=== PATIENT | female | born 1965 | race Caucasian/White ===

== ENCOUNTER 2022-10-08 11:21 | Outpatient (CLI) | payer BC, SELFPAY ==
--- NOTE | 2022-10-08 11:30 | CRLHL7_ITS ---
For Patients: As a result of the Century Cures Act, medical imaging exams and procedure reports are released immediately into your electronic medical record. You may view this report before your referring provider. If you have questions, please contact your health care provider. BILATERAL SCREENING MAMMOGRAM WITH COMPUTER-AIDED DETECTION AND TOMOSYNTHESIS TECHNIQUE: CC and MLO views were obtained. These mammographic images have been obtained using full-field digital technique. These mammographic images were interpreted with the benefit of computer-aided detection. Breast Tomosynthesis was used in this interpretation. COMPARISON FILM: 04/20/21, 02/18/20, 08/06/18. FINDINGS: The breasts are heterogeneously dense, which may obscure small masses IMPRESSION: There is no radiographic evidence for malignancy. ASSESSMENT: BI-RADS Category 1: Negative RECOMMENDATION: Routine screening mammogram in 1 year. A lay language report of this examination will be provided to the patient. Bryon Smith M.D. Diagnostic Radiologist [email or web address] Transcribed: 12:54 p.justin stern/Dictated by: Bryon Smith MD @ 10/09/2022 10:38:00 AM (Electronically Signed)
== END 2022-10-08 11:22 | disposition home or self-care (01) ==
LOC: MAMMO 11:24
PROVIDERS: PCP Family Medicine; Visit Provider Physician Assistant
DX: Z12.31 Encounter for screening mammogram for malignant neoplasm of breast (principal); R92.2 Inconclusive mammogram
CPT/HCPCS: 77063; 77067

== ENCOUNTER 2023-10-08 14:57 | Outpatient (CLI) | payer BC, SELFPAY | END 2023-10-08 14:58 | disposition home or self-care (01) | PROVIDERS: PCP Family Medicine; Visit Provider Physician Assistant | DX: E55.9 Vitamin D deficiency, unspecified (principal); R53.83 Other fatigue; Z13.29 Encounter for screening for other suspected endocrine disorder; Z13.0 Encounter for screening for diseases of the blood and blood-forming organs and certain disorders involving the immune mechanism | CPT/HCPCS: 82306; 82728; 84443 ==

== ENCOUNTER 2024-11-24 10:30 | Outpatient (CLI) | payer BC, SELFPAY ==
--- NOTE | 2024-11-24 10:45 | CRLHL7_ITS ---
For Patients: As a result of the Cures Act, medical imaging exams and procedure reports are released immediately into your electronic medical record. You may view this report before your referring provider. If you have questions, please contact your health care provider. BILATERAL DIAGNOSTIC DIGITAL MAMMOGRAM WITH COMPUTER-AIDED DETECTION AND TOMOSYNTHESIS CLINICAL HISTORY: LEFT breast pain. COMPARISON: 10/08/2022, 04/10/2021, 08/06/2018 TECHNIQUE: Digital BILATERAL mammogram in 4 projections with computer-aided detection. Tomosynthesis was used in this interpretation. BREAST COMPOSITION: The breasts are heterogeneously dense, which may obscure small masses. FINDINGS: 3D CC/MLO bilateral mammogram images submitted. No suspicious masses or architectural distortion. No suspicious calcifications. No adenopathy. IMPRESSION: No suspicious findings. No evidence of malignancy. RECOMMENDATIONS: Routine screening mammography. A lay language report of this examination will be provided to the patient. BI-RADS Category 1. Negative. Dictated by Bryon Smith MD @ 11/24/2024 11:23:42 AM CRL:chelsea RD/Dictated by: Bryon Smith MD @ 11/24/2024 11:23:00 AM (Electronically Signed)
--- OUTSIDE RECORDS SUMMARY | 2024-11-25 00:16 | XMS_ITS | Clinical Summary ---
Author Organization [facility] Address [address] [place] [address] Care Team Providers Care Promotions Director Name Role Phone Geraldine Barajas MD Primary Care Provide r Allergies Active Allergy Reactions Criticality Noted Date Comments Adhesive Rash 07/16/2022 Latex Rash 2021 Medications Blood Pressure Test Kit-Large (QUICK RESPONSE BP MONITOR) kitIndications: HTN (hypertension) As directed. Automatic arm cuff, diagnosis 401.0 hypertension 1 Kit 0 5 Active Vitamin A Palmitate 15,000 unit tab Take 1 Tablet by mouth once daily. Active Magnesium Gluconate 27.5 mg magne- sium (500 mg) tab Take 1 Tablet by mouth once daily. 1 Active hyoscyamine sublingual (LEVSIN SL) 0.125 mg subl TAKE 1 TABLET UNDER THE TONGUE EVERY 4 HOURS NEEDED 2 Active FLUoxetine (PROZAC) 10 mg capsuleIndicati ons:Generalized anxiety disorder,Season al depression Take 1 Capsule (10 mg) by mouth once daily in the morning. 100 Capsule 3 5 Active cholecalciferol 50,000 unit capsuleIndicati ons:Hypovitamin osis D Take 1 Capsule (50,000 units) by mouth once weekly for 8 doses. 4 Capsule 1 5 01/09/20 25 Active cholecalciferol (Vitamin D) 1,000 unit capsuleIndicati ons:Hypovitamin osis D Take 1 Capsule (1,000 units) by mouth once daily. 90 Capsule 3 5 Active Active Problems Problem Noted Date Diagnosed Date Restless leg syndrome 08/02/2022 Lactose intolerance 08/08/2021 Small intestinal bacterial overgrowth (SIBO) 01/2022 Overview (08/08/2021): Fructose malabsorption [place] [facility] [place] 07/2021 Diverticulosis 06/27/2021 Overview (06/27/2021): Colonoscopy Jun 2021 - follow up in 10 years Generalized anxiety disorder 04/30/2019 Anxiety state 03/25/2019 Insomnia, idiopathic 03/25/2019 Retinitis pigmentosa 06/30/2014 Fibromyalgia 06/30/2014 HTN (hypertension) 06/30/2014 Effects of chilblains 11/12/2007 Encounters Date Type Department Care Team Description 11/18/2024 1:05 PM CDT Office Visit [facility] [address] [place] [address] Marti Sanchez MD Sleep Problem (Sleep has been poor for 4 weeks ); Derm Problem (Fingers nails are growing down or curling) 11/18/2024 Travel from Last 3 Months Immunizations Immunization Administration Dates Next Due AMB Influenza, IIV4 PF (=>6 mos Flulaval,Fluzone Fluarix)(Flu Clinic Only) 05/01/2016 Hepatitis A (Adult) 05/29/2009 Influenza A (H1N1), Inactivated 05/29/2009 Influenza A (H1N1), Inactiva gui (Age >=3 Years) 05/29/2009 Influenza Virus, Unspecified 04/04/2017, 05/01/2016,03/17/2015,2013 Influenza, IIV3 (Age 6-35 mos) 03/28/2014,2008 Influenza, IIV3 (Age >=3 years) 05/29/2009 Influenza, IIV4 04/17/2022, 9,05/04/2018,2016,05/01/2016,03/17/2015 Influenza,CCIIV4 PRESERV FREE 04/08/2023 Td (Age >=7 Years) 11/30/2002 Td, Preservative Free (age > = 7 Years) 09/25/2018 Tdap 07/09/2024,05/29/2009 Tdap, Unspecified 05/29/2009 Zoster (Shingrix-RZV, recombinant) 12/11/2021, Family History Medical History Relation Name Comments GI Disease Brother 3 colitis Heart Disease Father Hypertension Father Stroke Maternal Grandfather Stroke Maternal Grandmother GI Disease Mother colitis Heart Disease Mother SVT Hypertension Mother Other Mother osteoporosis Stroke Paternal Grandfather Stroke Paternal Grandmother Relation Name Status Comments Brother 1 Alive Brother 2 Alive Brother 3 Father Maternal Grandfather Maternal Grandmother Mother Alive Paternal Grandfather Paternal Grandmother Social History Tobacco Use Types Packs/Day Years Used Date Smoking Tobacco: Never Smokeless Tobacco: Never Tobacco Cessation:Counseling Given: Yes Alcohol Use Standard Drinks/Week Comments Yes 0 (1 standard drink = 0.6 oz pur e alcohol) occaisonal PHQ-2 Answer Date Recorded PHQ-2 TOTAL SCORE 1 06/16/2024 Social Connections Answer Date Recorded Do you often feel lonely or isolated from those around you? 0 11/18/2024 Financial Resource Strain Answer Date R ecorded Difficulty of Paying Living Expenses 3 11/18/2024 Difficulty of Paying Living Expenses Not on file 11/18/2024 Food Insecurity Answer Date Recorded Do you worry your food will run out before you are able to buy more? 1 11/18/2024 Transportation Needs Answer Date Record ed Does lack of transportation keep you from medica l appointments? 1 11/18/2024 Does lack of transportation keep you from work, meetings or getting things that you need? 1 11/18/2024 Housing Stability Answer Date Recorded What is your housing situation today? 1 11/18/2024 Utilities Answer Date Recorded Do you have trouble paying f or utilities (for example, heat, electricity, water, phone)? 1 11/18/2024 Comments No Sex and Gender Information Value Date Recorded Sex Assigned at Not on file Legal Sex Female 5:41 AM HAND TOOL LAPPER Gender Identity Not on file Sexual Orientation Not on file Obstetrics History Para Term AB IAB SAB Ectopic Multiple Livin g Live Births 3 3 3 3 3 Date Outcome GA Total Labor Labor/2nd/3rd Weight Sex Type Anes PTL Lizz A1 A5 Name Clin 1994 Term 40w 0d 3.91 kg (8 lb 10 oz) M Vag Living 1996 Term 40w 0d 3.97 kg (8 lb 12 oz) F Vag Living 1999 Term 40w 0d 4.05 kg (8 lb 15 oz) M Vag Living Last Filed Vital Signs Vital Sign Reading Time Taken Comments Blood Pressure 116/78 11/18/2024 1:06 PM CDT Pulse 62 11/18/2024 1:06 PM CDT Temperature 36.7 C (98 F) 07/23/2019 12:12 PM HAND TOOL LAPPER Respiratory Rate - - Oxygen Saturation 99% 11/18/2024 1:06 PM CDT Inhaled Oxygen Concentration - - Weight 55.5 kg (122 lb 6.4 oz) 11/18/2024 1:06 P M CDT Height 157.5 cm (5' 2) 08/02/2022 7:47 AM HAND TOOL LAPPER Body Mass Index 22.39 08/02/2022 7:47 AM HAND TOOL LAPPER Plan of Treatment Health Maintenance Due Date Last Done Comments HIV for age 15-65 1982 Hepatitis C screening for ag e 18-79 1985 Hepatitis B series for 19+ ( 1 of 3 - 19+ 3-dose series) 1986 Pneumococcal series for age 50+ (1 of 1 - PCV) 2017 BMI (ht and wt on same day) for age 18+ 08/03/2023 08/02/2022, 07/23/2019, 07/14/2019, Additional history exists Mammogram for age 45-75 10/09/2023 10/09/19 23, 09/25/2016, 11/17/2007, Additional history exists Influenza Vaccine (Season Ended) 2025 04/08/2023, 04/17/2022, 03/25/2019, Additional history exists Depression screening for age 12+ 06/16/2025 06/16/2024, 07/29/2023, 08/02/2022, Additional history exists Pap test for age 21-65 07/02/2025 3, 07/02/2022, 11/29/2019, Additional history exists Lipids for age 45-75 04/23/2026 04/23/2021 Colonoscopy through age 75 06/27/2031 06/27/2021 Tetanus booster 07/09/2034 07/09/2024, 09/01, 05/29/2009, Additional history exists Zoster (shingles) series for age 50+ Completed 12/11/2021, 08/14/2021 COVID-19 vaccine series Completed 02/01/20, 04/08/2023, 04/17/2022, Additional history exists Tdap Completed 07/09/2024, 05/03, 05/29/2009 Procedures Procedure Name Priority Date/Time Associated Diagnosis Comments FERRITIN Add On 11/18/2024 2:05 PM CDT Paresthesia IRON PLUS IRON BINDING CAP Routine 11/18/2024 2:05 PM CDT Paresthesia HEMOGLOBIN Routine 11/18/2024 2:05 PM CDT Paresthesia VITAMIN B12 Routine 11/18/2024 2:05 PM CDT Paresthesia TSH WITH REFLEX Routine 11/18/2024 2:05 PM CDT Paresthesia COMP METABOLIC PANEL Routine 11/18/2024 2:05 PM CDT Paresthesia VITAMIN D 25 (DEFICIENCY) Routine 11/18/2024 2:05 PM CDT Paresthesia SCAN-MAMMOGRAPHY REPORT 10/08/2022 12:00 AM CDT HPV HIGH RISK Routine 07/02/2022 12:00 PM HAND TOOL LAPPER SCAN-COLONOSCOPY 06/27/2021 3:00 PM HAND TOOL LAPPER LIPID PANEL W REFLEX MEASURED LDL Routine 04/23/2021 1:27 PM HAND TOOL LAPPER Lipid screening from Last 3 Months or Most Recently Relevant to Health Maintenance Results * TSH WITH REFLEX (11/18/2024 2:05 PM CDT) TSH W/REFLEX TO FT4 1.68 0.40 - 4.50 mIU/L [facility] Blood BLOOD SPECIMEN / Unknown 11/18/2024 2:05 PM CDT 11/18/2024 2:06 PM CDT us Marti Sanchez MD CHEMISTRY Final Resul t Performing Organization Address [facility] Co de Phone Number [phone] [facility] [address] [place] [address], [place] [phone] [facility] [address] [place] [phone] * (ABNORMAL) VITAMIN D 25 (DEFICIENCY) (11/18/2024 2:05 PM CDT) VITAMIN D,25-OH,TOTAL,IA 12(L) 30 - 100 ng/mL [facility] Comment: Vitamin D Status 25-OH Vitamin D: Deficiency: <20 ng/mL Insufficiency: 20 - 29 ng/mL Optimal: > or = 30 ng/mL For 25-OH Vitamin D testing on patients on D2-supplementation and patients for whom quantitation of D2 and D3 fractions is required, the QuestAssure[facility](TM) 25-OH VIT D, (D2,D3), LC/MS/MS is recommended: order code 46101 (patients >2yrs). See Note 1 Note 1 For additional information, please refer to http://[email or web address]/faq/VDR507 (This link is being provided for informational/ educational purposes only.) Blood BLOOD SPECIMEN / Unknown 11/18/2024 2:05 PM CDT 11/18/2024 2:06 PM CDT us Marti Sanchez MD SEND OUTS Final Resul t Performing Organization Address City/[facility]/ZIP Co de Phone Number [phone] [facility] [address] [place] [address], [place] [phone] [facility] [address] [facility] [place] [address] * IRON PLUS IRON BINDING CAP (11/18/2024 2:05 PM CDT) Pathologist [facility] IRON, TOTAL 90 45 - 160 mcg/dL [facility] IRON BINDING CAPACITY 314 250 - 450 mcg/dL (calc) [facility] % SATURATION 29 16 - 45 % (calc) [facility] Blood BLOOD SPECIMEN / Unknown 11/18/2024 2:05 PM CDT 11/18/2024 2:06 PM CDT Marti Sanchez MD CHEMISTRY Final Resul t [employer] [facility] [address] [facility] [place] [address], [facility] [address] [facility] [place] [address] * HEMOGLOBIN (11/18/2024 2:05 PM CDT) [facility] HEMOGLOBIN 13.8 11.7 - 15.5 g/dL [employer] [facility] Blood BLOOD SPECIMEN / Unknown 11/18/2024 2:05 PM CDT 11/18/2024 2:06 PM CDT Marti Sanchez MD HEMATOLOGY Final Resul t [employer] [facility] [address] [facility] [place] [address], [place] [phone] [facility] [address] [facility] [place] [address] * FERRITIN (11/18/2024 2:05 PM CDT) Pathologist [facility] FERRITIN 53 16 - 232 ng/mL [facility] Blood BLOOD SPECIMEN / Unknown 11/18/2024 2:05 PM CDT 11/22/2024 4:42 PM CDT Marti Sanchez MD CHEMISTRY Final Resul t Performing Organization Address [facility] de Phone Number [phone] [address] [address], [place] [phone] [facility] [address] [place] [phone] * VITAMIN B12 (11/18/2024 2:05 PM CDT) VITAMIN B12 332 200 - 1,100 pg/mL [employer] Comment: Please Note: Although the reference range for vitamin B12 is 200-1100 pg/mL, it has been reported that between 5 and 10% of patients with values between 200 and 400 pg/mL may experience neuropsychiatric and hematologic abnormalities due to occult B12 deficiency; less than 1% of patients with values above 400 pg/mL will have symptoms. Blood BLOOD SPECIMEN / Unknown 11/18/2024 2:05 PM CDT 11/18/2024 2:06 PM CDT Marti Sanchez MD CHEMISTRY Final Resul t Performing Organization Address [facility] de Phone Number [phone] [address] [address], [place] [phone] [address] * (ABNORMAL) COMP METABOLIC PANEL (11/18/2024 2:05 PM CDT) Pathologist [facility] GLUCOSE 77 65 - 99 mg/dL [facility] Comment: Fasting reference interval UREA NITROGEN (BUN) 13 7 - 25 mg/dL [facility] CREATININE 1.06(H) 0.50 - 1.03 mg/dL [facility] EGFR 61 > OR = 60 mL/min/1.7 3m2 [facility] BUN/CREATININE RATIO 12 6 - 22 (calc) [facility] SODIUM 142 135 - 146 mmol/L [facility] POTASSIUM 3.9 3.5 - 5.3 mmol/L [facility] CHLORIDE 103 98 - 110 mmol/L [facility] CARBON DIOXIDE 31 20 - 32 mmol/L [facility] CALCIUM 9.6 8.6 - 10.4 mg/dL [facility] PROTEIN, TOTAL 6.6 6.1 - 8.1 g/dL [facility] ALBUMIN 4.5 3.6 - 5.1 g/dL [facility] GLOBULIN 2.1 1.9 - 3.7 g/dL (calc) [facility] ALBUMIN/GLOBULIN RATIO 2.1 1.0 - 2.5 (calc) [facility] BILIRUBIN, TOTAL 0.5 0.2 - 1.2 mg/dL [facility] ALKALINE PHOSPHATASE 64 37 - 153 U/L [facility] AST 16 10 - 35 U/L [facility] ALT 8 6 - 29 U/L [facility] Blood BLOOD SPECIMEN / Unknown 11/18/2024 2:05 PM CDT 11/18/2024 2:06 PM CDT us Marti Sanchez MD CHEMISTRY Final Resul t [employer] [facility] [address] [place] [address], [place] [phone] [facility] [address] [place] [address] * SCAN-MAMMOGRAPHY REPORT (10/08/2022 12:00 AM CDT) Anatomical Region Laterality Modality Other us Scanner OTHER Final Result * HPV HIGH RISK (07/02/2022 12:00 PM HAND TOOL LAPPER) TYPE 16 Negative Negative 07/06/2022 9:27 AM HAND TOOL LAPPER [facility] TYPE 18 Negative Negative 07/06/2022 9:27 AM HAND TOOL LAPPER [facility] OTHER HIGH RISK TYPES Negative Negative 07/06/2022 9:27 AM HAND TOOL LAPPER [facility] Other (Cervical) 07/02/2022 12:00 PM HAND TOOL LAPPER 07/04/2022 12:28 PM HAND TOOL LAPPER Narrative [facility] - 07/06/2022 9:27 AM HAND TOOL LAPPER HPV types 16, 18, 31, 33, 35, 39, 45, 51, 52, 56, 58, 59, 66 and 68 DNA were undetectable or below the pre-set threshold. Methodology: Shabnam Tadeo 4800 HPV Test august Luigi MORALES MICROBIOLOGY Final Resu lt [facility] [address] [place] [address], [place] * SCAN-COLONOSCOPY (06/27/2021 3:00 PM HAND TOOL LAPPER) Narrative Procedure Note Fatuma Winchester MD - 06/27/2021 2:17 PM CST [facility] [address] [facility], [address], [place] [address] Patient Name: Denise Ray Gender: Female Exam Date: 06/27/2021 Visit Number: [id number] Age: 56 Years 2 Months Date of : 1965 Attending MD: Fatuma Winchester MD Medical Record#: [id number] ----- Procedure: Colonoscopy Indications: Constipation Referring MD: Referral Self Primary MD: Anat Stout MD Medications: Admitting Medications: 0.9% Normal Saline at TKO Intra Procedure Medications: Patient received monitored anesthesia care. Complications: No immediate complications Procedure: An examination of the heart and lungs was performed and found to be withinacceptable limits. The patient was therefore deemed a reasonablecandidate for endoscopy and monitored anesthesia care. The risks and benefits of the procedure were explained to the patient.After obtaining informed consent, the patient received monitoredanesthesia care and I passed the scope without difficulty via the rectum to the ileum. The appendiceal orificeand ic valve were identified. The scope was retroflexed during theexamination The quality of the prep was good (Miralax/Gatorade DoublePrep). This was a complete examination throughout the entire colon. Findings: Normal finding. Location - ileum. Normal finding. Location - entire colon. Diverticulosis. Location: - descending colon - sigmoid. Quantity:few. No inflammation present. Impression: Constipation, unspecified constipation type Diverticulosis of colon without diverticulitis Plan Repeat colonoscopy in 10 years. If you have signs or symptoms of lower GI illness or a new diagnosis ofcolon cancer in an immediate family member, you should contact your GIprovider or your primary provider to discuss whether your next examshould be repeated sooner. We will attempt to contact you at appropriate intervals via U.S. mail. Wemay not be able to find you or contact you at that time, therefore youshould know that the responsibility for following our recommendation restswith you. If you don't hear from us at the time your procedure is due,please contact our office to schedule an appointment. If your contactinformation should change, please contact our office so that we can updateyour records. Follow up as previously discussed; This is documented in Clinic Note. Electronically signed by: Fatuma Winchester MD 06/27/2021 Medications: Medication Dose Sig Description PRN Status PRN Reason Comments [id number] HCL UNKNOWN N alpha lipoic acid UNKNOWN take 1 capsule by oral route every day N DHA Algal-900 UNKNOWN N magnesium gluconate UNKNOWN take 1 tablet by oral route every day N neomycin 500 mg tablet 500 mg take 1 tablet by oral route 2 times everyday N Prozac 20 mg capsule 20 mg take 1 capsule by oral route every day in themorning N psyllium husk UNKNOWN take 1 capsule by oral route every day N vitamin A UNKNOWN take 1 capsule by oral route 2 times every week N Vitamin C 500 mg tablet 500 mg take 1 by Oral route once N Allergies: Medication Name Ingredient Reaction Comment LATEX Rash NO KNOWN ALLERGIES Vital Signs: Date Time Systolic Diastolic Height Weight BMI 06/27/2021 2:40 PM 137 91 62 in 126.59 23.20 Smoking Status: Use Status Type Smoking Status Usage Per Day Years Used Total Pack Years no/never Never smoker Race: White Preferred Language: Khmer cc: Anat Stout MD [facility] [phone] Fatuma Winchester MD OTHER Final R esult * LIPID PANEL W REFLEX MEASURED LDL (04/23/2021 1:27 PM HAND TOOL LAPPER) CHOLESTEROL,TOTAL 182 100 - 199 mg/dL 04/23/2021 10:04 PM HAND TOOL LAPPER [facility] TRIGLYCERIDES 70 <150 mg/dL 04/23/2021 10:04 PM HAND TOOL LAPPER [facility] HDL CHOLESTEROL 75 >40 mg/dL 10:04 PM HAND TOOL LAPPER [facility] NON-HDL CHOLESTEROL 107 <145 mg/dl 04/23/2021 10:04 PM HAND TOOL LAPPER [facility] CHOL/HDL RATIO 2.43 <4.50 04/23/2021 10:04 PM HAND TOOL LAPPER [facility] LDL CHOLESTEROL 93 <=130 mg/dL 04/23/2021 10:04 PM [facility] VLDL CHOLESTEROL 14 <=30 mg/dL 04/23/2021 10:04 PM [facility] PROVIDER ORDERED STATUS RANDOM 04/23/2021 10:04 PM [facility] Blood BLOOD SPECIMEN / Unknown Venipuncture / Unknown 04/23/2021 1:27 PM HAND TOOL LAPPER 04/23/2021 1:29 PM HAND TOOL LAPPER us Geraldine Barajas MD CHEMISTRY Final Result [facility] [address] [place] [address], [place] from Last 3 Months or Most Recently Relevant to Health Maintenance Insurance [facility] Care Teams Promotions Director Relationship Specialty Start Date End Date Geraldine Barajas MD [address] [place] [address] PCP - General Family Practice 02/24/19
== END 2024-11-24 10:31 | disposition home or self-care (01) ==
LOC: MAMMO 10:30
PROVIDERS: PCP Family Medicine; Visit Provider Registered Nurse
DX: N64.4 Mastodynia (principal); R92.333 Mammographic heterogeneous density, bilateral breasts; N64.89 Other specified disorders of breast
CPT/HCPCS: 77066; G0279